=== PATIENT | male | born 1965 | race Caucasian/White ===

== ENCOUNTER 2017-12-25 23:32 | Inpatient (IN) | payer BC ==
[~2017-12-25] VITALS: Ht 177.8 cm; Wt 98.5 kg
[2017-12-25 23:39] VITALS: BP 133/86; PULSE 60; RESP 18; TEMP 98.2; O2SAT 92
[2017-12-25 23:45] VITALS: RESP 18
[2017-12-26] VITALS (12 sets, daily range): BP systolic 102–143; BP diastolic 53–91; PULSE 49–61; RESP 16–21; TEMP 97.6–98.4; O2SAT 95–100
[2017-12-26 00:13] LABS: AUTOMATED NEUTROPHIL # 5.4 TH/MM3 (1.8-7.7); BASOPHIL # 0.1 TH/MM3 (0-0.2); BASOPHIL % 0.5 % (0.0-2.0); EOSINOPHIL # 0.3 TH/MM3 (0-0.4); EOSINOPHIL % 2.9 % (0.0-4.0); HEMATOCRIT 43.5 % (39.0-51.0); LYMPH % 40.3 % (9.0-44.0); LYMPHOCYTE # 4.4 TH/MM3 (1.0-4.8); MEAN CELL VOLUME 90.9 FL (80.0-100.0); MEAN CORPUSCULAR HEMOGLOBIN 31.3 PG (27.0-34.0); MEAN CORPUSCULAR HGB CONC 34.5 % (32.0-36.0); MEAN PLATELET VOLUME 7.9 FL (7.0-11.0); MONO % 7.4 % (0.0-8.0); MONOCYTE # 0.8 TH/MM3 (0-0.9); NEUT % 48.9 % (16.0-70.0); PLATELET COUNT 215 TH/MM3 (150-450); RED BLOOD COUNT 4.79 MIL/MM3 (4.50-5.90); RED CELL DISTRIBUTION WIDTH 13.2 % (11.6-17.2)
[2017-12-26] MEDS ORDERED: LOSA100T PO (00:45)
[2017-12-26] MEDS ORDERED: PRAV80TA PO (00:45)
[2017-12-26] MEDS ORDERED: ASPI81CH6 CHEW (00:45)
[2017-12-26 00:46] LABS: BICARBONATE 27.2 MEQ/L (21.0-32.0); BLOOD UREA NITROGEN 16 MG/DL (7-18); CALCIUM 8.5 MG/DL (8.5-10.1); CHLORIDE 109 MEQ/L (98-107); CREATININE 1.05 MG/DL (0.60-1.30); GLOMERULAR FILTRATION RATE 75 ML/MIN (>89); GLUCOSE,RANDOM 98 MG/DL (74-106); SODIUM (NA) 142 MEQ/L (136-145); TROPONIN I 0.23 NG/ML (0.02-0.05)
--- NOTE | 2017-12-26 00:56 | RADRPT ---
EXAM DATE/TIME: 12/26/2017 00:41 [facility] COMPARISON: No previous studies available for comparison. INDICATIONS : Chest pain for 8 hours MEDICAL HISTORY : None. SURGICAL HISTORY : None. ENCOUNTER: Initial ACUITY: 1 day PAIN SCORE: 7/10 LOCATION: Bilateral chest FINDINGS: A single view of the chest demonstrates the lungs to be symmetrically aerated without evidence of mas s, infiltrate or effusion. The cardiomediastinal contours are unremarkable. Osseous structures are intact. CONCLUSION: Normal examination. Armando Ryan Jr., MD on December 26, 2017 at 0:54 Board Certified Radiologist. This report was verified electronically.
[2017-12-26] MEDS ORDERED: ONDANSETRON HCL 4 MG/2 ML VIAL IV PUSH PRN ×2 (01:15→11:45)
[2017-12-26] MEDS ORDERED: SODIUM CHLOR 0.9% 1000 ML INJ 1,000 ML IV SCH (01:15)
[2017-12-26] MEDS ORDERED: HEPARIN SODIUM - IV 10,000 UNITS/10 ML VIAL IV ONE (01:15)
[2017-12-26] MEDS ORDERED: MORPHINE SULFATE 4 MG/ML INJ IV PUSH PRN (01:15)
[2017-12-26] MEDS ORDERED: NITROGLYCERIN 0.4 MG SL 25 TABS/BTL SL PRN (01:15)
[2017-12-26] MEDS ORDERED: ACETAMINOPHEN 325 MG TAB PO PRN ×3 (01:15→11:45)
[2017-12-26] MEDS ORDERED: HEPARIN-D5W 25,000 U/250 ML 250 ML IV PRN (01:15)
[2017-12-26] MEDS ORDERED: SODIUM CHLORIDE 0.9% FLUSH 10 ML FLUSH IV FLUSH PRN ×3 (01:15→11:45)
--- NOTE | 2017-12-26 01:22 | PD ---
HPI Chief Complaint: Chest Pain Time Seen by Provider: 00:57 Travel History International Travel<30 days: No Contact w/Intl Traveler<30days: No Traveled to known affect area: No History of Present Illness HPI 52-year-old male complains of chest pain. Patient states that he had chest pain which lasted about an hour last night. Patient states that the chest pain resolved completely. Patient started having chest pain again this evening. Patient states that the chest pains started around 11:00 tonight. Patient states the pain is substernal chest pressure with radiation to both arms. Patient complains of tingling sensation bilateral hands. Patient complained of shortness of breath with chest pain. Patient denies palpitation diaphoresis with the chest pain. Patient states that the chest pain resolved when he arrived to the ED. Patient complains of aching pain between the shoulder blade now. Patient denies any coughing congestion fever chills. Patient denies history of NH. Patient has history hypertension, hyperlipidemia. Patient denies history diabetes. Patient smokes cigars. Patient has family history of heart disease. Patient took aspirin around the time today. Patient was given aspirin [address] to ED. Patient states that he had normal stress test about 5 years ago. PFSH Past Medical History Hypertension: Yes Immunizations Current: Yes Triglycerides - High: Yes Tetanus Vaccination: Unknown Influenza Vaccination: Yes Social History Alcohol Use: No Tobacco Use: Yes Substance Use: No Allergies-Medications (Allergen,Severity, Reaction): Coded Allergies: No Known Allergies (Unverified , 12/25/17) Reported Meds & Prescriptions Reported Meds & Active Scripts Active Reported Aspirin Low Dose (Aspirin) 81 Mg Chew 81 Mg CHEW DAILY Pravachol (Pravastatin) 80 Mg Tab 80 Mg PO DAILY Losartan (Losartan Potassium) 100 Mg Tab 100 Mg PO DAILY Review of Systems General / Constitutional: No: Fever Eyes: No: Visual changes HENT: No: Headaches Cardiovascular: Positive: Chest Pain or Discomfort Respiratory: Positive: Shortness of Breath Gastrointestinal: No: Abdominal Pain Genitourinary: No: Dysuria Musculoskeletal: No: Pain Skin: No Rash Neurologic: No: Weakness Psychiatric: No: Depression Endocrine: No: Polydipsia Hematologic/Lymphatic: No: Easy Bruising Physical Exam Narrative GENERAL: Well-nourished, well-developed patient. SKIN: Focused skin assessment warm/dry. HEAD: Normocephalic. EYES: No scleral icterus. No injection or drainage. NECK: Supple, trachea midline. No JVD or lymphadenopathy. CARDIOVASCULAR: Regular rate and rhythm without murmurs, gallops, or rubs. RESPIRATORY: Breath sounds equal bilaterally. No accessory muscle use. GASTROINTESTINAL: Abdomen soft, non-tender, nondistended. MUSCULOSKELETAL: No cyanosis, or edema. BACK: Nontender without obvious deformity. No CVA tenderness. Neurologic exam normal. Data Data Last Documented VS Vital Signs Date Time Temp Pulse Resp B/P (MAP) Pulse Ox O2 Delivery O2 Flow Rate FiO2 12/26/17 00:52 54 18 129/89 (102) 96 Room Air 12/25/17 23:45 2.00 12/25/17 23:39 98.2 Orders Orders Electrocardiogram (12/25/17 23:43) Complete Blood Count With Diff (12/25/17 23:43) Basic Metabolic Panel (Bmp) (12/25/17 23:43) Ckmb (Isoenzyme) Profile (12/25/17 23:43) Troponin I (12/25/17 23:43) Chest, Single Ap (12/25/17 23:43) Iv Access Insert/Monitor (12/25/17 23:43) Ecg Monitoring (12/25/17 23:43) Oxygen Administration (12/25/17 23:43) Oximetry (12/25/17 23:43) CKMB (12/25/17 23:50) CKMB% (12/25/17 23:50) Sodium Chlor 0.9% 1000 Ml Inj (Ns 1000 M (12/26/17 01:15) Ckmb (Isoenzyme) Profile (12/26/17 01:10) Ckmb (Isoenzyme) Profile (12/26/17 07:10) Ckmb (Isoenzyme) Profile (12/26/17 13:10) Troponin I (12/26/17 01:10) Troponin I (12/26/17 07:10) Troponin I (12/26/17 13:10) Electrocardiogram (12/26/17 01:10) Electrocardiogram (12/26/17 07:10) Electrocardiogram (12/26/17 13:10) Diet Npo Except Meds (12/26/17 Breakfast) Activity Bed Rest With Brp (12/26/17 01:10) Sodium Chloride 0.9% Flush (Ns Flush) (12/26/17 09:00) Sodium Chloride 0.9% Flush (Ns Flush) (12/26/17 01:15) Nitroglycerin Sl (Nitrostat Sl) (12/26/17 01:15) Morphine Inj (Morphine Inj) (12/26/17 01:15) Acetaminophen (Tylenol) (12/26/17 01:15) Ondansetron Inj (Zofran Inj) (12/26/17 01:15) Vital Signs (Adult) LILLIAM.Q4H (12/26/17 01:10) Consult Cardiology (12/26/17 ) Career Coordinator / Telemetry LILLIAM.Q8H (12/26/17 01:10) Heparin Inj (Heparin Inj) (12/26/17 01:15) Heparin-D5w 25,000 U/250 Ml (Heparin-D5w (12/26/17 01:15) Prothrombin Time / Inr (Pt) (12/26/17 01:15) Act Partial Throm Time (Ptt) (12/26/17 01:15) Labs Laboratory Tests Test 12/25/17 23:50 White Blood Count 11.0 TH/MM3 Red Blood Count 4.79 MIL/MM3 Hemoglobin 15.0 GM/DL Hematocrit 43.5 % Mean Corpuscular Volume 90.9 FL Mean Corpuscular Hemoglobin 31.3 PG Mean Corpuscular Hemoglobin Concent 34.5 % Red Cell Distribution Width 13.2 % Platelet Count 215 TH/MM3 Mean Platelet Volume 7.9 FL Neutrophils (%) (Auto) 48.9 % Lymphocytes (%) (Auto) 40.3 % Monocytes (%) (Auto) 7.4 % Eosinophils (%) (Auto) 2.9 % Basophils (%) (Auto) 0.5 % Neutrophils # (Auto) 5.4 TH/MM3 Lymphocytes # (Auto) 4.4 TH/MM3 Monocytes # (Auto) 0.8 TH/MM3 Eosinophils # (Auto) 0.3 TH/MM3 Basophils # (Auto) 0.1 TH/MM3 CBC Comment DIFF FINAL Differential Comment Blood Urea Nitrogen 16 MG/DL Creatinine 1.05 MG/DL Random Glucose 98 MG/DL Calcium Level 8.5 MG/DL Sodium Level 142 MEQ/L Potassium Level 3.8 MEQ/L Chloride Level 109 MEQ/L Carbon Dioxide Level 27.2 MEQ/L Anion Gap 6 MEQ/L Estimat Glomerular Filtration Rate 75 ML/MIN Total Creatine Kinase 161 U/L Creatine Kinase MB 4.5 NG/ML Troponin I 0.23 NG/ML MDM Medical Decision Making Medical Screen Exam Complete: Yes Emergency Medical Condition: Yes Interpretation(s) EKG shows sinus rhythm nonspecific ST-T wave change. Last Impressions Chest X-Ray 12/25/17 0643 Signed Impressions: Service Date/Time: Tuesday, December 26, 2017 00:41 - CONCLUSION: Normal examination. Armando Ryan Jr., MD 1:21 AM. CBC within normal limits. Troponin 0 0.23. CK-MB fraction 4.5. Differential Diagnosis Differential diagnoses including angina, NH, PE, pneumothorax. Narrative Course 52-year-old male with chest pain. Patient had chest pain last night and again this evening. Patient received aspirin prior to arrival. Nitro paste 1 inch on chest wall. Heparin bolus and drip. Diagnosis Primary Impression: NSTEMI (non-ST elevated myocardial infarction) Admitting Information Admitting Physician Requests: Admit Matt Knott MD Dec 26, 2017 01:22
[2017-12-26] MEDS ORDERED: MAGNESIUM HYDROXIDE SUSP 30 ML CUP PO PRN (02:00)
[2017-12-26] MEDS ORDERED: LACTULOSE SYRUP 20 GM/30 ML CUP PO PRN (02:00)
[2017-12-26] MEDS ORDERED: ACETAMINOPHEN/HYDROcodone 325 MG/5 MG TAB PO PRN (02:00)
[2017-12-26] MEDS ORDERED: BISACODYL 10 MG SUPP RECTAL PRN (02:00)
[2017-12-26] MEDS ORDERED: SENNOSIDES 8.6 MG TAB PO PRN (02:00)
[2017-12-26] MEDS ORDERED: MORPHINE SULFATE 2 MG/ML SYRINGE IV PUSH PRN (02:00)
[2017-12-26] MEDS ORDERED: ONDANSETRON HCL 4 MG/2 ML VIAL IVP PRN (02:00)
[2017-12-26] MEDS ORDERED: IOHEXOL 350 MG/ML 10 ML VIAL (for RAD DIAG) IVCONTRAST ONE (02:28)
--- NOTE | 2017-12-26 02:37 | RADRPT ---
EXAM DATE/TIME: 12/26/2017 02:24 [facility] COMPARISON: No previous studies available for comparison. INDICATIONS : Chest pain. IV CONTRAST: 75 cc Omnipaque 350 (iohexol) IV RADIATION DOSE: 23.64 CTDIvol (mGy) MEDICAL HISTORY : Hypertension. SURGICAL HISTORY : None. ENCOUNTER: Initial ACUITY: 1 day PAIN SCALE: 5/10 LOCATION: chest TECHNIQUE: Volumetric scanning of the chest was performed using a pulmonary embolism protocol MIP images were re constructed. Using automated exposure control and adjustment of the mA and/or kV according to patien t size, radiation dose was kept as low as reasonably achievable to obtain optimal diagnostic quality images. DICOM format image data is available electronically for review and comparison. Follow-up recommendations for detected pulmonary nodules are based at a minimum on nodule size and pa tient risk factors according to Fleischner Society Guidelines. FINDINGS: PULMONARY ARTERIES: No filling defects are seen in the pulmonary arteries through the segmental level. LUNGS: There is no consolidation or pneumothorax . No concerning pulmonary nodule is visualized. PLEURAE: There is no pleural thickening or pleural effusion. MEDIASTINUM: There is good visualization of the great vessels of the middle mediastinum. No evidence of mediastin al or hilar adenopathy/mass. MUSCULOSKELETAL: Within normal limits for patient age. MISCELLANEOUS: The visualized upper abdominal organs demonstrate no acute abnormality. CONCLUSION: Normal examination. Armando Ryan Jr., MD on December 26, 2017 at 2:34 Board Certified Radiologist. This report was verified electronically.
[2017-12-26 02:42] LABS: INTERNATIONAL NORMALIZED RATIO 0.9 RATIO; PROTHROMBIN TIME - PATIENT 9.5 SEC (9.8-11.6)
[2017-12-26] MEDS: SODIUM CHLOR 0.9% 1000 ML INJ 1,000 ML IV SCH ×8 (03:10→22:12)
--- NOTE | 2017-12-26 03:51 | HHI.HP ---
[facility] Service [facility] Primary Care Physician Unknown Admission Diagnosis NSTEMI Diagnoses: (1) NSTEMI (non-ST elevated myocardial infarction) Diagnosis: Principal (2) Hypoxia Diagnosis: Principal (3) HTN (hypertension) Diagnosis: Principal Travel History International Travel<30 Days: No Contact w/Intl Traveler <30 Da: No Traveled to Known Affected Are: No History of Present Illness This is a 52-year-old male with a PMH of HTN and Hyperlipidemia who was brought to the ER by EMS for complaints of chest pain. Had episode of substernal chest pain last night which resolved spontaneously. Today, pt w/ recurrent chest pain. Pain is pressure-like, substernal, intermittent radiation to shoulder blades, severe, 8/10. Given NTG by EMS w/ minimal improvement. Pt lives in [place], flew into town recently for business, notes c/o SOB after walking up stairs yesterday, not typical for him. Denies fever, chills or cough. On arrival, BP 133/86, HR 60, O2 sat 92% on RA, Afebrile. CBC unremarkable. Chemistry essentially unremarkable except for GFR 75. Troponin 0.23. INR 0.9. CXR with no acute findings. Currently on Heparin gtt. Review of Systems Except as stated in HPI: all other systems reviewed are Neg ROS: 14 point review of systems otherwise negative. Past Family Social History Past Medical History PMH: HTN and Hyperlipidemia Past Surgical History PAST SURGICAL HISTORY: None Allergies: Coded Allergies: No Known Allergies (Unverified , 12/25/17) Family History PAST FAMILY HISTORY: Reviewed, positive for CAD. Social History PAST SOCIAL HISTORY: Negative for alcohol or drugs. Smokes cigars. Physical Exam Vital Signs Vital Signs Date Time Temp Pulse Resp B/P (MAP) Pulse Ox O2 Delivery O2 Flow Rate FiO2 12/26/17 03:08 18 12/26/17 00:52 54 18 129/89 (102) 96 Room Air 12/25/17 23:45 97 Nasal Cannula 2.00 12/25/17 23:45 18 12/25/17 23:39 98.2 60 18 133/86 (102) 92 Physical Exam PE: GENERAL: Very pleasant middle-aged white male in no acute distress. HEENT: PERRLA, EOMI. No scleral icterus or conjunctival pallor. No lid lag or facial droop. CARDIOVASCULAR: Regular rate and rhythm. No obvious murmurs to auscultation. No chest tenderness to palpation. RESPIRATORY: No obvious rhonchi or wheezing. Clear to auscultation. Breath sounds equal bilaterally. GASTROINTESTINAL: Abdomen soft, non-tender, nondistended. BS normal. MUSCULOSKELETAL: Extremities without clubbing, cyanosis, or edema. No obvious deformities. NEUROLOGICAL: Awake, alert and oriented x4. No focal neurologic deficits. Moving both upper and lower extremities spontaneously. Laboratory Laboratory Tests Test 12/25/17 23:50 White Blood Count 11.0 Red Blood Count 4.79 Hemoglobin 15.0 Hematocrit 43.5 Mean Corpuscular Volume 90.9 Mean Corpuscular Hemoglobin 31.3 Mean Corpuscular Hemoglobin Concent 34.5 Red Cell Distribution Width 13.2 Platelet Count 215 Mean Platelet Volume 7.9 Neutrophils (%) (Auto) 48.9 Lymphocytes (%) (Auto) 40.3 Monocytes (%) (Auto) 7.4 Eosinophils (%) (Auto) 2.9 Basophils (%) (Auto) 0.5 Neutrophils # (Auto) 5.4 Lymphocytes # (Auto) 4.4 Monocytes # (Auto) 0.8 Eosinophils # (Auto) 0.3 Basophils # (Auto) 0.1 CBC Comment DIFF FINAL Differential Comment Prothrombin Time 9.5 Prothromb Time International Ratio 0.9 Activated Partial Thromboplast Time 23.7 Blood Urea Nitrogen 16 Creatinine 1.05 Random Glucose 98 Calcium Level 8.5 Sodium Level 142 Potassium Level 3.8 Chloride Level 109 Carbon Dioxide Level 27.2 Anion Gap 6 Estimat Glomerular Filtration Rate 75 Total Creatine Kinase 161 Creatine Kinase MB 4.5 Troponin I 0.23 Result Diagram: 12/25/17234912/25/172349 Caprini VTE Risk Assessment Caprini VTE Risk Assessment: Mod/High Risk (score >= 2) Caprini Risk Assessment Model Point Value = 1 Point Value = 2 Point Value = 3 Point Value = 5 Age 41-60 Minor surgery BMI > 25 kg/m2 Swollen legs Varicose veins or History of unexplained or recurrent spontaneous Oral contraceptives or hormone replacement Sepsis (< 1 month) Serious lung disease, including pneumonia (< 1 month) Abnormal pulmonary function Acute myocardial infarction Congestive heart failure (< 1 month) History of inflammatory bowel disease Medical patient at bed rest Age 61-74 Arthroscopic surgery Major open surgery (> 45 min) Laparoscopic surgery (> 45 min) Malignancy Confined to bed (> 72 hours) Immobilizing plaster cast Central venous access Age >= 75 History of VTE Family history of VTE Factor V Leiden Prothrombin [id number] Lupus anticoagulant Anticardiolipin antibodies Elevated serum homocysteine Heparin-induced thrombocytopenia Other congenital or acquired thrombophilia Stroke (< 1 month) Elective arthroplasty Hip, pelvis, or leg fracture Acute spinal cord injury (< 1 month) Prophylaxis Regimen Total Risk Factor Score Risk Level Prophylaxis Regimen 0-1 Low Early ambulation 2 Moderate Order ONE of the following: *Sequential Compression Device (SCD) *Heparin 5000 units SQ BID 3-4 Higher Order ONE of the following medications: *Heparin 5000 units SQ TID *Enoxaparin/Lovenox 40 mg SQ daily (WT < 150 kg, CrCl > 30 mL/min) *Enoxaparin/Lovenox 30 mg SQ daily (WT < 150 kg, CrCl > 10-29 mL/min) *Enoxaparin/Lovenox 30 mg SQ BID (WT < 150 kg, CrCl > 30 mL/min) AND/OR *Sequential Compression Device (SCD) 5 or more Highest Order ONE of the following medications: *Heparin 5000 units SQ TID (Preferred with Epidurals) *Enoxaparin/Lovenox 40 mg SQ daily (WT < 150 kg, CrCl > 30 mL/min) *Enoxaparin/Lovenox 30 mg SQ daily (WT < 150 kg, CrCl > 10-29 mL/min) *Enoxaparin/Lovenox 30 mg SQ BID (WT < 150 kg, CrCl > 30 mL/min) AND *Sequential Compression Device (SCD) Assessment and Plan Problem List: (1) NSTEMI (non-ST elevated myocardial infarction) ICD Code: I21.4 - Non-ST elevation (NSTEMI) myocardial infarction Status: Acute (2) Hypoxia ICD Code: R09.02 - Hypoxemia (3) HTN (hypertension) ICD Code: I10 - Essential (primary) hypertension Assessment and Plan A/P: 1. NSTEMI: acute onset of chest pain yesterday w/ recurrent symptoms today, Trop 0.23, EKG w/ no acute ischemia. Currently on Heparin gtt, admit to [facility], telemetry, check serial cardiac enzymes for trend, ASA, Statin, B-brian- caution w/ bradycardia. S/p NTG in ER w/ no improvement and hypotensive episode , will hold NTG. Morphine prn. Check Lipid Profile. Consult Cardiology for further evaluation. 2. Hypoxia: O2 sat 92% on RA, recent travel from [place], +SOB, +trop, will check CTA Pulm to eval for possible underlying PE. 3. HTN: Monitor BP, antihypertensives as needed. 4. DVT Prophylaxis: Heparin gtt 5. Social work for d/c planning as needed. 6. Case discussed w/ ER physician at length, labs/records/imaging reviewed by me. Physician Certification 2 Midnight Certification Type: Admission for Inpatient Services Order for Inpatient Services The services are ordered in accordance with Medicare regulations or non- Medicare payer requirements, as applicable. In the case of services not specified as inpatient-only, they are appropriately provided as inpatient services in accordance with the 2-midnight benchmark. Estimated LOS (days): 2 days is the estimated time the patient will need to remain in the hospital, assuming treatment plan goals are met and no additional complications. Post-Hospital Plan: Not yet determined Consuelo Espinal MD Dec 26, 2017 03:51
[2017-12-26 07:59] LABS: TROPONIN I 0.99 NG/ML (0.02-0.05)
[2017-12-26] MEDS ORDERED: PILL SPLITTER OTHER PRN (08:45)
[2017-12-26 08:53] LABS: CHOLESTEROL/ HDL RATIO 2.96 RATIO; HDL CHOLESTEROL 58.6 MG/DL (40.0-60.0)
[2017-12-26] MEDS: ASPIRIN 81 MG CHEW TAB CHEW SCH ×2 (09:00→09:37)
[2017-12-26] MEDS: DOCUSATE SODIUM 50 MG/SENNA 8.6 MG TAB PO SCH ×2 (09:00→21:46)
[2017-12-26] MEDS ORDERED: SODIUM CHLORIDE 0.9% FLUSH 10 ML FLUSH IV FLUSH SCH (09:00)
[2017-12-26] MEDS: SODIUM CHLORIDE 0.9% FLUSH 10 ML FLUSH IV FLUSH SCH ×3 (09:00→21:46)
[2017-12-26] MEDS: METOPROLOL TARTRATE 25 MG TAB PO SCH ×2 (09:00→21:00)
[2017-12-26] MEDS ORDERED: DIAZEPAM 5 MG TAB PO SCH (09:00)
[2017-12-26] MEDS: PRAVASTATIN SOD 80 MG TAB PO SCH ×2 (09:00→09:36)
[2017-12-26] MEDS: NITROGLYCERIN 2% OINT 1 GM PACKET TOPICAL SCH ×2 (09:06→13:21)
--- NOTE | 2017-12-26 09:14 | MB ---
cc: Gabino Mack MD DATE: 12/26/2017 REASON FOR CONSULTATION: Evaluation of chest pain. HISTORY OF PRESENT ILLNESS: Scott Carcamo is a 52-year-old man with multiple risk factors for coronary artery disease. He has hypertension for which he takes Losartan 100 mg. He has hyperlipidemia, for which he takes pravastatin 80 mg. He smokes cigars. His father had bypass surgery at age 39. The patient has had previous stress tests, but those were unremarkable. Two nights ago, he was lying in bed and had chest pain lasting about 5 minutes. Then last night around 11:00 p.m., about 5 minutes into being in bed, he developed severe heaviness in his chest with some tingling in his arms. Most of that has gone away, but he still has a slight twinge and he has a little discomfort in his back. He has been treated with nitroglycerin ointment. His blood pressure and heart rate have been on the low side and he has not been given the beta brian so far. 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 MEDICATIONS: 1. Aspirin. 2. Pravastatin. 3. Losartan. 4. He is on IV heparin. ALLERGIES: NONE. PAST SURGICAL HISTORY: Unremarkable. PAST MEDICAL HISTORY: Only remarkable for hypertension and hyperlipidemia. 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 He smokes cigars. Drinks alcohol socially. REVIEW OF SYSTEMS: He has had no GI bleeding, no urinary symptoms, no bleeding of any kind. Full review of systems was discussed and is unremarkable. PHYSICAL EXAMINATION: GENERAL: Reveals a mildly overweight, anxious, well-developed, well-nourished white male, in no acute distress. VITAL SIGNS: Charted. 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 NECK: Shows no JVD, no bruits. CHEST: Clear to auscultation. CARDIAC: Shows S1, S2. Bradycardic, regular rhythm. No S3 gallop. No murmur. ABDOMEN: Soft, nontender, no masses or organomegaly. EXTREMITIES: No clubbing, cyanosis or edema. His pulses are intact. DIAGNOSTIC STUDIES: His EKGs, he has had 2 of. The first EKG is from 11:35 p.m., it shows a sinus rhythm at 55 beats per minute. There are no acute ST-T wave changes. Second EKG at 5:55 again does not show acute ST-T wave changes. Heart rate is 47. He had a CTA that was negative for pulmonary embolism. He has had hematocrit of 43.5. Troponin has gone from 0.23, up to 0.99. CPK has gone from 161 to 257 with an MB of 25.3, which is elevated. Creatinine is ____. Chest x-ray is normal. IMPRESSION: A 52-year-old man with an acute non-ST segment elevation myocardial infarction. He has strong risk factors for coronary disease. RECOMMENDATIONS: Because of the rising troponin and continuation of mild symptoms, I think it is best if we proceed with cardiac catheterization this morning. Informed consent has been obtained for a cath, possible intervention. listened in the whole time on her cell phone. She is up in [place]. We will proceed this morning with cath and high probability that he may need some type of revascularization. Further therapy to be determined. MD TURNER Conway/GODFREY , 08:48 AM , 09:13 AM
[2017-12-26] MEDS ORDERED: diphenhydrAMINE HCL 25 MG CAP PO SCH (09:15)
[2017-12-26] MEDS ORDERED: NITROGLYCERIN INJ 5 ML ONE (09:53)
[2017-12-26] MEDS ORDERED: HEPARIN SODIUM - IV 10,000 UNITS/10 ML VIAL ONE (09:53)
[2017-12-26] MEDS ORDERED: HEPARIN-NS/PF FLUSH BAG 2,000 ML IV FLUSH ONE (09:53)
[2017-12-26] MEDS ORDERED: VERAPAMIL HCL 5 MG/2 ML VIAL ONE (09:53)
[2017-12-26] MEDS ORDERED: MIDAZOLAM HCL 2 MG/2 ML VIAL ONE (09:53)
[2017-12-26] MEDS ORDERED: TICAGRELOR 90 MG TAB PO ONE (11:11)
[2017-12-26] MEDS ORDERED: BIVALIRUDIN 250 MG VIAL ONE ×2 (11:19→11:36)
[2017-12-26] MEDS ORDERED: oxyCODONE/ACETAMINOPHEN 5 MG/325 MG TAB PO PRN (11:45)
[2017-12-26] MEDS ORDERED: MISC INFORMATION XX ONE (11:45)
--- NOTE | 2017-12-26 11:53 | MA ---
cc: Gabino Mack MD DATE: 12/26/2017 PROCEDURES PERFORMED: Left heart catheterization, left ventriculography, coronary angiography, stenting of the distal right coronary artery and posterolateral branch of the right coronary artery along with a stent of the proximal right coronary artery. DESCRIPTION OF PROCEDURE: The patient was brought to the cardiac catheterization lab under emergency conditions. Initially, I was going to go via the right radial approach, but he has extensive scarring in that arm, so I opted to go to the right femoral approach. Using 1% lidocaine for local anesthesia and using a single stick I accessed the right femoral artery and placed a 6-Cypriot sheath. Left ventricular pressure was then recorded using an angled pigtail catheter, followed by left ventriculography and then a pullback. Coronary angiography was then completed using a left 5 Sixto for the left coronary artery and a 3 DRC for the right coronary artery. The right coronary artery was the infarct related artery. It had a very tortuous loop in the mid vessel and I knew I had to go past that, so I started with a left 1 Amplatz guide. This was a little too large and damp so I switched to a left 0.75 Amplatz guide, which engaged the artery quite nicely and provided adequate backup. I then chose a Choice PT floppy wire, which with moderate difficulty, I was able to negotiate out into the far distal portion of the posterolateral branch of the right coronary artery. Predilation was performed with a 2.0 mm balloon. This restored flow and allowed me to see the lesion and then I stented it with a 3.0 x 18 mm Tony stent deployed at 14 atmospheres. The stent actually starts in the distal right coronary artery and extends out into the posterolateral branch. Angiography demonstrated a superb result. I then stented of the proximal right coronary artery utilizing a 3.5 x 22 mm Tony stent at 16 atmospheres. I had an excellent angiographic result. The wire and catheter was removed safely. After the guiding catheter was removed, angiography was obtained of the right femoral artery via the sheath, followed by uncomplicated Angio-Seal closure. The patient is now back on his way to his room. FINDINGS: 1. Hemodynamics: Left ventricular pressure was 116/4 with an end diastolic pressure of 23. Aortic pressure is 117/75 with a mean of 95. During pullback from the left ventricle to the aorta, there was no gradient measured. 2. Left ventriculography: Left ventriculography shows posterobasal akinesis, ejection fraction slightly impaired, estimated at 45%. 3. Coronary angiography: The left main coronary artery is a very large vessel with no stenosis seen. It trifurcates into the LAD, a very large ramus intermediate branch and a small circumflex vessel. The LAD has proximal irregularities and after the first septal has about a long zone of 25% irregular disease. Coming out of this is the diagonal branch, which is small and has about 25% disease. The ramus intermediate branch is large and has 5% irregularities proximally. Circumflex artery gives off only a tiny obtuse marginal branch and it appears normal. The right coronary artery is a dominant vessel. It has a long proximal stenosis, about 80% severity. Just past a very small PDA branch, the distal right coronary artery and posterolateral branch of the right coronary artery are totally occluded. 4. Results of stenting: Following stenting, the distal vessel has was gone from INEZ 0 flow to INEZ 3 flow. There is no residual stenosis seen distally or proximally where the stents were placed. There is no dissection. CONCLUSIONS: 1. Mildly elevated left ventricular end diastolic pressure. 2. Mildly impaired left ventricular function from an inferior infarct. 3. Critical disease of the right coronary artery with a very complex vessel due to the tortuosity, but extremely successful results with stenting of the distal and posterolateral branch of the right coronary artery as well as stenting of the proximal right coronary artery. 4. Mild disease of the mid left anterior descending that can be managed medically. RECOMMENDATIONS: The patient is going to be treated with aspirin and Brilinta. I am going to upgrade his statin therapy to 80 of atorvastatin. He is too bradycardic at this point add a beta brian. MD TURNER Conway/GODFREY , 11:31 AM , 11:52 AM
[2017-12-26] MEDS ORDERED: BIVALIRUDIN INJ 250 MG in SODIUM CHLORIDE 0.9% INJ 50 ML IV SCH (13:00)
[2017-12-26] MEDS: ATORVASTATIN 80 MG TAB PO SCH (13:21)
--- NOTE | 2017-12-26 16:43 | EKG ---
Date Performed: 12/25/2017 Time Performed: 23:35:43 PTAGE: 52 years EKG: SINUS BRADYCARDIA BORDERLINE ECG INTERPRETATION BASED ON A DEFAULT AGE OF 42 YEARS NO PREVIOUS TRACING DOCTOR: Gabino Mack Interpretating Date/Time 12/26/2017 16:45:35
--- NOTE | 2017-12-26 16:55 | EKG ---
Date Performed: 12/26/2017 Time Performed: 05:55:54 PTAGE: 52 years EKG: SINUS BRADYCARDIA BORDERLINE ECG Since the PREVIOUS TRACING , no significant change noted PREVIOUS TRACIN12/25/2017 23.35 DOCTOR: Gabino Mack Interpretating Date/Time 12/26/2017 16:50:20
[2017-12-26] MEDS ORDERED: METOPROLOL TARTRATE 25 MG TAB PO SCH (21:00)
[2017-12-27] VITALS (8 sets, daily range): BP systolic 104–131; BP diastolic 69–95; PULSE 51–75; RESP 16–20; TEMP 98.2–98.7; O2SAT 95–98
[2017-12-27 04:35] LABS: AUTOMATED NEUTROPHIL # 5.6 TH/MM3 (1.8-7.7); BASOPHIL % 0.4 % (0.0-2.0); EOSINOPHIL # 0.2 TH/MM3 (0-0.4); EOSINOPHIL % 1.7 % (0.0-4.0); HEMATOCRIT 42.8 % (39.0-51.0); HEMOGLOBIN 14.4 GM/DL (13.0-17.0); LYMPH % 31.3 % (9.0-44.0); LYMPHOCYTE # 2.9 TH/MM3 (1.0-4.8); MEAN CELL VOLUME 91.8 FL (80.0-100.0); MEAN CORPUSCULAR HEMOGLOBIN 30.8 PG (27.0-34.0); MEAN CORPUSCULAR HGB CONC 33.5 % (32.0-36.0); MEAN PLATELET VOLUME 8.2 FL (7.0-11.0); MONO % 7.7 % (0.0-8.0); MONOCYTE # 0.7 TH/MM3 (0-0.9); NEUT % 58.9 % (16.0-70.0); PLATELET COUNT 174 TH/MM3 (150-450); RED BLOOD COUNT 4.67 MIL/MM3 (4.50-5.90); RED CELL DISTRIBUTION WIDTH 13.5 % (11.6-17.2); WHITE BLOOD COUNT 9.4 TH/MM3 (4.0-11.0)
[2017-12-27] MEDS: SODIUM CHLOR 0.9% 1000 ML INJ 1,000 ML IV SCH ×5 (04:52→16:59)
[2017-12-27 05:17] LABS: ALT (GPT) 33 U/L (12-78); AST (GOT) 100 U/L (15-37); BICARBONATE 24.3 MEQ/L (21.0-32.0); BLOOD UREA NITROGEN 10 MG/DL (7-18); CALCIUM 8.3 MG/DL (8.5-10.1); CHLORIDE 111 MEQ/L (98-107); CREATININE 0.79 MG/DL (0.60-1.30); GLOMERULAR FILTRATION RATE 104 ML/MIN (>89); GLUCOSE,RANDOM 90 MG/DL (74-106); SODIUM (NA) 144 MEQ/L (136-145)
[2017-12-27 05:23] LABS: ALKALINE PHOSPHATASE 35 U/L (45-117); TOTAL BILIRUBIN ADULT 0.4 MG/DL (0.2-1.0); TOTAL PROTEIN 5.8 GM/DL (6.4-8.2)
[2017-12-27] MEDS: TICAGRELOR 90 MG TAB PO SCH ×2 (08:50→20:57)
[2017-12-27] MEDS: DOCUSATE SODIUM 50 MG/SENNA 8.6 MG TAB PO SCH ×2 (08:50→21:00)
[2017-12-27] MEDS: ASPIRIN 81 MG CHEW TAB CHEW SCH (08:50)
[2017-12-27] MEDS: SODIUM CHLORIDE 0.9% FLUSH 10 ML FLUSH IV FLUSH SCH ×4 (08:50→21:00)
[2017-12-27] MEDS: METOPROLOL TARTRATE 25 MG TAB PO SCH ×2 (08:51→20:57)
[2017-12-27] MEDS ORDERED: ASPIRIN 81 MG CHEW TAB PO SCH (09:00)
--- NOTE | 2017-12-27 10:39 | HHI.PR ---
Subjective Remarks In bed family at bedside. He was able to ambulate today no chest pain or shortness of breath. Heart rate control lower side however was started on a low-dose of metoprolol to cardiac cath. Did not have a bowel movement yet. No nausea vomiting no diarrhea. No fever or chills. Is not coughing. Objective Vitals Vital Signs Date Time Temp Pulse Resp B/P (MAP) Pulse Ox O2 Delivery O2 Flow Rate FiO2 12/27/17 08:06 98.2 58 18 128/95 (106) 96 12/27/17 07:14 57 12/27/17 04:00 98.2 58 18 104/69 (81) 96 12/27/17 00:00 98.2 51 16 116/71 (86) 95 12/26/17 23:00 57 12/26/17 20:00 98.4 58 16 136/78 (97) 96 12/26/17 20:00 61 12/26/17 16:00 98.0 58 16 128/82 (97) 95 12/26/17 16:00 58 12/26/17 12:00 51 12/26/17 12:00 97.6 53 16 121/83 (96) 95 I/O 12/26/17 12/26/17 12/26/17 12/27/17 12/27/17 12/27/17 07:00 15:00 23:00 07:00 15:00 23:00 Intake Total 200 ml 400 ml 720 ml Output Total 1210 ml 2400 ml Balance 200 ml -810 ml -1680 ml Intake Oral 400 ml 720 ml IV Total 200 ml Output Urine Total 1210 ml 2400 ml # Bowel Movements 0 0 Result Diagram: 12/27/17 0355 12/27/17 [address] Angiography 12/26/17 0000 Signed Impressions: Service Date/Time: Tuesday, December 26, 2017 02:24 - CONCLUSION: Normal examination. Armando Ryan Jr., MD Chest X-Ray 12/25/17 2360 Signed Impressions: Service Date/Time: Tuesday, December 26, 2017 00:41 - CONCLUSION: Normal examination. Armando Ryan Jr., MD Objective Remarks GENERAL: Very pleasant middle-aged white male in no acute distress. CARDIOVASCULAR: Regular rate and rhythm. No obvious murmurs to auscultation. No chest tenderness to palpation. RESPIRATORY: No obvious rhonchi or wheezing. Clear to auscultation. Breath sounds equal bilaterally. GASTROINTESTINAL: Abdomen soft, non-tender, nondistended. BS normal. MUSCULOSKELETAL: Extremities without clubbing, cyanosis, or edema. No obvious deformities. NEUROLOGICAL: Awake, alert and oriented x4. No focal neurologic deficits. Moving both upper and lower extremities spontaneously. A/P Problem List: (1) NSTEMI (non-ST elevated myocardial infarction) ICD Code: I21.4 - Non-ST elevation (NSTEMI) myocardial infarction Status: Acute (2) Hypoxia ICD Code: R09.02 - Hypoxemia (3) HTN (hypertension) ICD Code: I10 - Essential (primary) hypertension Assessment and Plan NSTEMI: acute onset of chest pain yesterday w/ recurrent symptoms today, Trop 0.23, EKG w/ no acute ischemia. Currently on Heparin gtt, admit to [facility], telemetry, check serial cardiac enzymes for trend, ASA, Statin, B-brian- caution w/ bradycardia. S/p NTG in ER w/ no improvement and hypotensive episode , will hold NTG. Morphine prn. Lipid Profile. Consult Cardiology ff s/p cardiac cath by Dr Mack on 12/26/17: Mildly elevated left ventricular end diastolic pressure. Mildly impaired left ventricular function from an inferior infarct. Critical disease of the right coronary artery with stenting of the distal and posterolateral branch of the right coronary artery as well as stenting of the proximal right coronary artery. Mild disease of the mid left anterior descending that can be managed medically. Continue aspirin and Brilinta. Increase statin therapy to 80 of atorvastatin. He is too bradycardic at this point to add a beta brian. Will follow up with cardiology Hypoxia on admission: O2 sat 92% on RA, recent travel from [place], +SOB, + trop, will check CTA Pulm to eval for possible underlying PE. HTN: Monitor BP, antihypertensives as needed. DVT Prophylaxis: Heparin gtt CM consulted for DC planning as needed. Discussed with the patient, nurse Discussed with Dr. Mack cardiology, discharge tomorrow per cardiology Maddy Eduardo MD Dec 27, 2017 10:39
[2017-12-27] MEDS ORDERED: NITR1SUB3 SL (10:43)
[2017-12-27] MEDS ORDERED: BRIL90TA PO (10:43)
[2017-12-27] MEDS ORDERED: ATOR80TA45 PO (10:43)
--- NOTE | 2017-12-27 10:43 | HHI.DCPOC ---
Discharge Care Plan Goals to Promote Your Health * To prevent worsening of your condition and complications * To maintain your health at the optimal level Directions to Meet Your Goals Take your medications as prescribed Follow your dietary instruction Follow activity as directed Keep your appointments as scheduled Take your immunizations and boosters as scheduled If your symptoms worsen call your PCP, if no PCP go to Urgent Care Center or Emergency Room Smoking is Dangerous to Your Health. Avoid second hand smoke Call the 24-hour hour crisis hotline for domestic abuse at Maddy Eduardo MD Dec 27, 2017 10:43
--- NOTE | 2017-12-27 10:43 | HHI.DS ---
Discharge Summary Admission Date Dec 26, 2017 at 01:49 Discharge Date: Dec 27, 2017 Admitting Diagnosis NSTEMI (1) NSTEMI (non-ST elevated myocardial infarction) ICD Code: I21.4 - Non-ST elevation (NSTEMI) myocardial infarction Status: Acute (2) Hypoxia ICD Code: R09.02 - Hypoxemia (3) HTN (hypertension) ICD Code: I10 - Essential (primary) hypertension Brief History - From Admission This is a 52-year-old male with a PMH of HTN and Hyperlipidemia who was brought to the ER by EMS for complaints of chest pain. Had episode of substernal chest pain last night which resolved spontaneously. Today, pt w/ recurrent chest pain. Pain is pressure-like, substernal, intermittent radiation to shoulder blades, severe, 8/10. Given NTG by EMS w/ minimal improvement. Pt lives in [place], flew into town recently for business, notes c/o SOB after walking up stairs yesterday, not typical for him. Denies fever, chills or cough. On arrival, BP 133/86, HR 60, O2 sat 92% on RA, Afebrile. CBC unremarkable. Chemistry essentially unremarkable except for GFR 75. Troponin 0.23. INR 0.9. CXR with no acute findings. Currently on Heparin gtt. CBC/BMP: 12/27/17 0355 12/27/17 0335 Significant Findings Laboratory Tests Test 12/25/17 23:50 12/26/17 06:00 12/26/17 09:00 12/27/17 03:35 Prothrombin Time 9.5 SEC (9.8-11.6) Activated Partial Thromboplast Time 23.7 SEC (24.3-30.1) 34.1 SEC (24.3-30.1) Chloride Level 109 MEQ/L (98-107) 111 MEQ/L (98-107) Estimat Glomerular Filtration Rate 75 ML/MIN (>89) Creatine Kinase MB 4.5 NG/ML (0.5-3.6) 25.3 NG/ML (0.5-3.6) 73.7 NG/ML (0.5-3.6) Troponin I 0.23 NG/ML (0.02-0.05) 0.99 NG/ML (0.02-0.05) LDL Cholesterol 105 MG/DL (0-99) Total Protein 5.8 GM/DL (6.4-8.2) Albumin 3.0 GM/DL (3.4-5.0) Calcium Level 8.3 MG/DL (8.5-10.1) Alkaline Phosphatase 35 U/L (45-117) Aspartate Amino Transf (AST/SGOT) 100 U/L (15-37) Total Creatine Kinase 611 U/L (39-308) Creatine Kinase MB % 12.1 % (0.0-4.0) Test 12/27/17 03:55 PE at Discharge GENERAL: Very pleasant middle-aged white male in no acute distress. CARDIOVASCULAR: Regular rate and rhythm. No obvious murmurs to auscultation. No chest tenderness to palpation. RESPIRATORY: No obvious rhonchi or wheezing. Clear to auscultation. Breath sounds equal bilaterally. GASTROINTESTINAL: Abdomen soft, non-tender, nondistended. BS normal. MUSCULOSKELETAL: Extremities without clubbing, cyanosis, or edema. No obvious deformities. NEUROLOGICAL: Awake, alert and oriented x4. No focal neurologic deficits. Moving both upper and lower extremities spontaneously. Pt Condition on Discharge: Stable Maddy Eduardo MD Dec 27, 2017 10:43
[2017-12-27] MEDS: ATORVASTATIN 80 MG TAB PO SCH (10:45)
--- NOTE | 2017-12-27 11:22 | PD.CARD.PN ---
Subjective Subjective Remarks no angina. no complaints. Objective Medications Current Medications Medications (Trade) Dose Ordered Sig/Linette Route Start Time Stop Time Status Last Admin Heparin Sodium/ Dextrose 250 ml @ 9 mls/hr TITRATE PRN IV 12/26/17 01:15 12/26/17 02:49 Sodium Chloride 1,000 ml @ 100 mls/hr Q10H IV 12/26/17 02:00 12/26/17 13:21 (NS Flush) 2 ml UNSCH PRN IV FLUSH 12/26/17 02:00 (NS Flush) 2 ml BID IV FLUSH 12/26/17 09:00 12/27/17 08:50 (Zofran Inj) 4 mg Q6H PRN IVP 12/26/17 02:00 12/26/17 02:43 (Tylenol) 650 mg Q6H PRN PO 12/26/17 02:00 ([place] 5-325 Mg) 1 tab Q4H PRN PO 12/26/17 02:00 12/26/17 05:38 (Morphine Inj) 2 mg Q3H PRN IV PUSH 12/26/17 02:00 12/26/17 02:43 (Josie-Colace) 1 tab BID PO 12/26/17 09:00 12/27/17 08:50 (Milk Of Magnesia Liq) 30 ml Q12H PRN PO 12/26/17 02:00 (Senokot) 17.2 mg Q12H PRN PO 12/26/17 02:00 (Dulcolax Supp) 10 mg DAILY PRN RECTAL 12/26/17 02:00 (Lactulose Liq) 30 ml DAILY PRN PO 12/26/17 02:00 (Aspirin Chew) 81 mg DAILY CHEW 12/26/17 09:00 12/27/17 08:50 (Lopressor) 12.5 mg Q12HR PO 12/26/17 09:00 12/27/17 08:51 (Pill Splitter) 1 ea UNSCH PRN OTHER 12/26/17 08:45 Sodium Chloride 1,000 ml @ 150 mls/hr Q6H40M IV 12/26/17 08:52 12/31/17 08:51 12/26/17 09:50 (Benadryl) 25 mg FOREPART LASTER PO 12/26/17 09:15 12/30/17 09:14 (Valium) 5 mg FOREPART LASTER PO 12/26/17 09:00 12/30/17 08:59 (NS Flush) 2 ml UNSCH PRN IV FLUSH 12/26/17 11:45 (NS Flush) 2 ml BID IV FLUSH 12/26/17 21:00 12/26/17 21:00 (Tylenol) 325 mg Q4H PRN PO 12/26/17 11:45 (Percocet 5-325 Mg) 1 tab Q4H PRN PO 12/26/17 11:45 (Aspirin Chew) 81 mg DAILY PO 12/27/17 09:00 (Brilinta) 90 mg BID PO 12/27/17 09:00 12/27/17 08:50 (Zofran Inj) 4 mg Q4H PRN IV PUSH 12/26/17 11:45 (Lipitor) 80 mg DAILY PO 12/26/17 11:45 12/27/17 10:45 Vital Signs / I&O Vital Signs Date Time Temp Pulse Resp B/P (MAP) Pulse Ox O2 Delivery O2 Flow Rate FiO2 12/27/17 08:06 98.2 58 18 128/95 (106) 96 12/27/17 07:14 57 12/27/17 04:00 98.2 58 18 104/69 (81) 96 12/27/17 00:00 98.2 51 16 116/71 (86) 95 12/26/17 23:00 57 12/26/17 20:00 98.4 58 16 136/78 (97) 96 12/26/17 20:00 61 12/26/17 16:00 98.0 58 16 128/82 (97) 95 12/26/17 16:00 58 12/26/17 12:00 51 12/26/17 12:00 97.6 53 16 121/83 (96) 95 I/O 12/26/17 12/26/17 12/26/17 12/27/17 12/27/17 12/27/17 07:00 15:00 23:00 07:00 15:00 23:00 Intake Total 200 ml 400 ml 720 ml Output Total 1210 ml 2400 ml Balance 200 ml -810 ml -1680 ml Intake Oral 400 ml 720 ml IV Total 200 ml Output Urine Total 1210 ml 2400 ml # Bowel Movements 0 0 Physical Exam GENERAL: Well developed, well nourished. No acute distress. HEENT: Jugular venous pressure is normal. CHEST: Lungs clear to auscultation bilaterally. Unlabored respiratory effort. CARDIAC: Regular rate and rhythm without S3, S4, or murmur. ABDOMEN: Soft, nontender, no hepatosplenomegaly. Bowel sounds present. EXTREMITIES: No clubbing, cyanosis, or edema. Pulses symmetrical/ equal. Right groin no hematoma. Laboratory Laboratory Tests Test 12/27/17 03:35 12/27/17 03:55 Blood Urea Nitrogen 10 MG/DL Creatinine 0.79 MG/DL Random Glucose 90 MG/DL Total Protein 5.8 GM/DL Albumin 3.0 GM/DL Calcium Level 8.3 MG/DL Alkaline Phosphatase 35 U/L Aspartate Amino Transf (AST/SGOT) 100 U/L Alanine Aminotransferase (ALT/SGPT) 33 U/L Total Bilirubin 0.4 MG/DL Sodium Level 144 MEQ/L Potassium Level 3.8 MEQ/L Chloride Level 111 MEQ/L Carbon Dioxide Level 24.3 MEQ/L Anion Gap 9 MEQ/L Estimat Glomerular Filtration Rate 104 ML/MIN Total Creatine Kinase 611 U/L Creatine Kinase MB 73.7 NG/ML Creatine Kinase MB % 12.1 % White Blood Count 9.4 TH/MM3 Red Blood Count 4.67 MIL/MM3 Hemoglobin 14.4 GM/DL Hematocrit 42.8 % Mean Corpuscular Volume 91.8 FL Mean Corpuscular Hemoglobin 30.8 PG Mean Corpuscular Hemoglobin Concent 33.5 % Red Cell Distribution Width 13.5 % Platelet Count 174 TH/MM3 Mean Platelet Volume 8.2 FL Neutrophils (%) (Auto) 58.9 % Lymphocytes (%) (Auto) 31.3 % Monocytes (%) (Auto) 7.7 % Eosinophils (%) (Auto) 1.7 % Basophils (%) (Auto) 0.4 % Neutrophils # (Auto) 5.6 TH/MM3 Lymphocytes # (Auto) 2.9 TH/MM3 Monocytes # (Auto) 0.7 TH/MM3 Eosinophils # (Auto) 0.2 TH/MM3 Basophils # (Auto) 0.0 TH/MM3 CBC Comment DIFF FINAL Differential Comment Assessment and Plan Problem List: (1) Hyperlipidemia ICD Codes: E78.5 - Hyperlipidemia, unspecified Plan: atorva 80mg (2) HTN (hypertension) ICD Codes: I10 - Essential (primary) hypertension (3) NSTEMI (non-ST elevated myocardial infarction) ICD Codes: I21.4 - Non-ST elevation (NSTEMI) myocardial infarction Status: Acute (4) Stented coronary artery ICD Codes: Z95.5 - Presence of coronary angioplasty implant and graft Plan: cont ASA and Brilinta Assessment and Plan Ambulate today, Home tomorrow AM. Gabino Mack MD Dec 27, 2017 11:22
[2017-12-27] MEDS ORDERED: METO25TA3 PO (13:29)
[2017-12-28] VITALS: PULSE 54; PULSE 55; RESP 16; O2SAT 98
--- NOTE | 2017-12-28 00:13 | EKG ---
Date Performed: 12/27/2017 Time Performed: 07:07:24 PTAGE: 52 years EKG: Sinus bradycardia Inferior infarct - age undetermined Abnormal ECG PREVIOUS TRACING : 12/26/2017 14.48 Since the previous tracing, no significant change noted DOCTOR: Deonte Nugent Interpretating Date/Time 12/28/2017 00:11:50
--- NOTE | 2017-12-28 00:39 | EKG ---
Date Performed: 12/26/2017 Time Performed: 14:48:32 PTAGE: 52 years EKG: Sinus bradycardia Inferior infarct - age undetermined Abnormal ECG PREVIOUS TRACING : 12/26/2017 05.55 Since the previous tracing, no significant change noted DOCTOR: Deonte Nugent Interpretating Date/Time 12/28/2017 00:38:03
[2017-12-28 04:00] VITALS: BP 120/82; PULSE 54; RESP 16; TEMP 98.6; O2SAT 97
[2017-12-28] MEDS ORDERED: IOHEXOL 350 MG/ML 100 ML BTL (for Cath Lab) OTHER ONE (06:52)
--- NOTE | 2017-12-28 07:22 | PD.CARD.PN ---
Subjective Subjective Remarks no angina. no complaints. Objective Medications Current Medications Medications (Trade) Dose Ordered Sig/Linette Route Start Time Stop Time Status Last Admin Heparin Sodium/ Dextrose 250 ml @ 9 mls/hr TITRATE PRN IV 12/26/17 01:15 12/26/17 02:49 Sodium Chloride 1,000 ml @ 100 mls/hr Q10H IV 12/26/17 02:00 12/26/17 13:21 (NS Flush) 2 ml UNSCH PRN IV FLUSH 12/26/17 02:00 (NS Flush) 2 ml BID IV FLUSH 12/26/17 09:00 12/27/17 21:00 (Zofran Inj) 4 mg Q6H PRN IVP 12/26/17 02:00 12/26/17 02:43 (Tylenol) 650 mg Q6H PRN PO 12/26/17 02:00 ([place] 5-325 Mg) 1 tab Q4H PRN PO 12/26/17 02:00 12/26/17 05:38 (Morphine Inj) 2 mg Q3H PRN IV PUSH 12/26/17 02:00 12/26/17 02:43 (Josie-Colace) 1 tab BID PO 12/26/17 09:00 12/27/17 08:50 (Milk Of Magnesia Liq) 30 ml Q12H PRN PO 12/26/17 02:00 (Senokot) 17.2 mg Q12H PRN PO 12/26/17 02:00 (Dulcolax Supp) 10 mg DAILY PRN RECTAL 12/26/17 02:00 (Lactulose Liq) 30 ml DAILY PRN PO 12/26/17 02:00 (Aspirin Chew) 81 mg DAILY CHEW 12/26/17 09:00 12/27/17 08:50 (Lopressor) 12.5 mg Q12HR PO 12/26/17 09:00 12/27/17 20:57 (Pill Splitter) 1 ea UNSCH PRN OTHER 12/26/17 08:45 Sodium Chloride 1,000 ml @ 150 mls/hr Q6H40M IV 12/26/17 08:52 12/31/17 08:51 12/26/17 09:50 (Benadryl) 25 mg [employer] WORKER PO 12/26/17 09:15 12/30/17 09:14 (Valium) 5 mg ME[employer] WORKER PO 12/26/17 09:00 12/30/17 08:59 (NS Flush) 2 ml UNSCH PRN IV FLUSH 12/26/17 11:45 (NS Flush) 2 ml BID IV FLUSH 12/26/17 21:00 12/26/17 21:00 (Tylenol) 325 mg Q4H PRN PO 12/26/17 11:45 (Percocet 5-325 Mg) 1 tab Q4H PRN PO 12/26/17 11:45 (Aspirin Chew) 81 mg DAILY PO 12/27/17 09:00 (Brilinta) 90 mg BID PO 12/27/17 09:00 12/27/17 20:57 (Zofran Inj) 4 mg Q4H PRN IV PUSH 12/26/17 11:45 (Lipitor) 80 mg DAILY PO 12/26/17 11:45 12/27/17 10:45 Vital Signs / I&O Vital Signs Date Time Temp Pulse Resp B/P (MAP) Pulse Ox O2 Delivery O2 Flow Rate FiO2 12/28/17 04:00 97 Room Air 12/28/17 04:00 98.6 54 16 120/82 (95) 97 12/28/17 04:00 54 12/28/17 00:00 98 Room Air 12/28/17 00:00 54 12/28/17 00:00 55 16 98 12/27/17 20:00 98 Room Air 12/27/17 20:00 58 12/27/17 20:00 98.7 59 20 131/84 (100) 98 12/27/17 15:54 98.5 61 18 131/89 (103) 97 12/27/17 15:31 58 12/27/17 12:07 98.2 75 18 125/88 (100) 96 12/27/17 08:06 98.2 58 18 128/95 (106) 96 I/O 12/27/17 12/27/17 12/27/17 12/28/17 12/28/17 12/28/17 07:00 15:00 23:00 07:00 15:00 23:00 Intake Total 720 ml 1400 ml 480 ml Output Total 2400 ml 2100 ml 1750 ml Balance -1680 ml -700 ml -1270 ml Intake Oral 720 ml 1400 ml 480 ml Output Urine Total 2400 ml 2100 ml 1750 ml # Voids 5 # Bowel Movements 0 2 0 Physical Exam GENERAL: Well developed, well nourished. No acute distress. HEENT: Jugular venous pressure is normal. CHEST: Lungs clear to auscultation bilaterally. Unlabored respiratory effort. CARDIAC: Regular rate and rhythm without S3, S4, or murmur. Tele SR to SB ABDOMEN: Soft, nontender, no hepatosplenomegaly. Bowel sounds present. EXTREMITIES: No clubbing, cyanosis, or edema. Pulses symmetrical/ equal. Right groin no hematoma. Assessment and Plan Problem List: (1) Hyperlipidemia ICD Codes: E78.5 - Hyperlipidemia, unspecified Plan: atorva 80 (2) HTN (hypertension) ICD Codes: I10 - Essential (primary) hypertension Plan: stable (3) NSTEMI (non-ST elevated myocardial infarction) ICD Codes: I21.4 - Non-ST elevation (NSTEMI) myocardial infarction Status: Acute (4) Stented coronary artery ICD Codes: Z95.5 - Presence of coronary angioplasty implant and graft Plan: cont ASA 81mg + Brilinta 90mg bid Assessment and Plan Stable for discharge, He will F/u in [place]. Extensively educated on heart healthy diet. Wait 2 weeks to return to work, cardiac rehab in [place]. Gabino Mack MD Dec 28, 2017 07:22
--- NOTE | 2017-12-28 07:52 | HHI.PR ---
Subjective Remarks Pt discharged prior to attending seeing him this morning. Cardiology had cleared him first thing this morning and discharge medications and packet had already been printed yesterday. Spoke with patient on the phone who was already en route back to his hotel who states that he was feeling excellent. He denied any bleeding or hematoma from his catheterization site. He denied CP or SOB. 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 Objective Vital Signs Date Time Temp Pulse Resp B/P (MAP) Pulse Ox O2 Delivery O2 Flow Rate FiO2 12/28/17 04:00 97 Room Air 12/28/17 04:00 98.6 54 16 120/82 (95) 97 12/28/17 04:00 54 12/28/17 00:00 98 Room Air 12/28/17 00:00 54 12/28/17 00:00 55 16 98 12/27/17 20:00 98 Room Air 12/27/17 20:00 58 12/27/17 20:00 98.7 59 20 131/84 (100) 98 12/27/17 15:54 98.5 61 18 131/89 (103) 97 12/27/17 15:31 58 12/27/17 12:07 98.2 75 18 125/88 (100) 96 12/27/17 08:06 98.2 58 18 128/95 (106) 96 I/O 12/27/17 12/27/17 12/27/17 12/28/17 12/28/17 12/28/17 07:00 15:00 23:00 07:00 15:00 23:00 Intake Total 720 ml 1400 ml 480 ml Output Total 2400 ml 2100 ml 1750 ml Balance -1680 ml -700 ml -1270 ml Intake Oral 720 ml 1400 ml 480 ml Output Urine Total 2400 ml 2100 ml 1750 ml # Voids 5 # Bowel Movements 0 2 0 Result Diagram: 12/27/17 0355 12/27/17 0335 Objective Remarks Exam not performed as patient had been discharged from the floor A/P Assessment and Plan 52 YOWM with HTN and HLD admitted on 12/26 with chest pain found to have NSTEMI with mildly elevated troponins. 1. NSTEMI - Troponons 0.23 and 0.99 - EKG sinus john - Placed on heparin gtt on admission - Cardiology consulted and pt underwent cath on 12/26 showing: Mildly elevated left ventricular end diastolic pressure Mildly impaired left ventricular function from an inferior infarct Critical disease of the right coronary artery with stenting of the distal and posterolateral branch of the right coronary artery as well as stenting of the proximal right coronary artery Mild disease of the mid left anterior descending that can be managed medically - Cleared by cardiology this AM - On ASA and Brilinta, scripts provided - Continue statin and BB (statin dose increased) 2. HTN - On MM 3. HLD - On statin Discharge Planning Discharged this morning prior to attending seeing him Isidra Buchanan MD Dec 28, 2017 07:51
[2017-12-28 08:10] VITALS: BP 120/88; PULSE 63; RESP 16; TEMP 98.3; O2SAT 98
--- NOTE | 2017-12-28 09:08 | HHI.DS ---
Discharge Summary Admission Date Dec 26, 2017 at 01:49 Discharge Date: Dec 28, 2017 Admitting Diagnosis NSTEMI (1) NSTEMI (non-ST elevated myocardial infarction) ICD Code: I21.4 - Non-ST elevation (NSTEMI) myocardial infarction Status: Acute (2) Hypoxia ICD Code: R09.02 - Hypoxemia (3) HTN (hypertension) ICD Code: I10 - Essential (primary) hypertension Procedures Cardiac catheterization 12/25 Mildly elevated left ventricular end diastolic pressure. Mildly impaired left ventricular function from an inferior infarct. Critical disease of the right coronary artery with stenting of the distal and posterolateral branch of the right coronary artery as well as stenting of the proximal right coronary artery. Mild disease of the mid left anterior descending that can be managed medically. Brief History - From Admission This is a 52-year-old male with a PMH of HTN and Hyperlipidemia who was brought to the ER by EMS for complaints of chest pain. Had episode of substernal chest pain last night which resolved spontaneously. Today, pt w/ recurrent chest pain. Pain is pressure-like, substernal, intermittent radiation to shoulder blades, severe, 8/10. Given NTG by EMS w/ minimal improvement. Pt lives in [place], flew into town recently for business, notes c/o SOB after walking up stairs yesterday, not typical for him. Denies fever, chills or cough. On arrival, BP 133/86, HR 60, O2 sat 92% on RA, Afebrile. CBC unremarkable. Chemistry essentially unremarkable except for GFR 75. Troponin 0.23. INR 0.9. CXR with no acute findings. Currently on Heparin gtt. CBC/BMP: 12/27/17 0355 12/27/17 0335 Significant Findings Laboratory Tests Test 12/25/17 23:50 12/26/17 06:00 12/26/17 09:00 12/27/17 03:35 Prothrombin Time 9.5 SEC (9.8-11.6) Activated Partial Thromboplast Time 23.7 SEC (24.3-30.1) 34.1 SEC (24.3-30.1) Chloride Level 109 MEQ/L (98-107) 111 MEQ/L (98-107) Estimat Glomerular Filtration Rate 75 ML/MIN (>89) Creatine Kinase MB 4.5 NG/ML (0.5-3.6) 25.3 NG/ML (0.5-3.6) 73.7 NG/ML (0.5-3.6) Troponin I 0.23 NG/ML (0.02-0.05) 0.99 NG/ML (0.02-0.05) LDL Cholesterol 105 MG/DL (0-99) Total Protein 5.8 GM/DL (6.4-8.2) Albumin 3.0 GM/DL (3.4-5.0) Calcium Level 8.3 MG/DL (8.5-10.1) Alkaline Phosphatase 35 U/L (45-117) Aspartate Amino Transf (AST/SGOT) 100 U/L (15-37) Total Creatine Kinase 611 U/L (39-308) Creatine Kinase MB % 12.1 % (0.0-4.0) Test 12/27/17 03:55 PE at Discharge GENERAL: Very pleasant middle-aged white male in no acute distress. CARDIOVASCULAR: Regular rate and rhythm. No obvious murmurs to auscultation. No chest tenderness to palpation. RESPIRATORY: No obvious rhonchi or wheezing. Clear to auscultation. Breath sounds equal bilaterally. GASTROINTESTINAL: Abdomen soft, non-tender, nondistended. BS normal. MUSCULOSKELETAL: Extremities without clubbing, cyanosis, or edema. No obvious deformities. NEUROLOGICAL: Awake, alert and oriented x4. No focal neurologic deficits. Moving both upper and lower extremities spontaneously. Hospital Course 52 YOWM with HTN and HLD admitted on 12/26 with chest pain found to have NSTEMI with mildly elevated troponins. 1. NSTEMI - Troponons 0.23 and 0.99 - EKG sinus john - Placed on heparin gtt on admission - Cardiology consulted and pt underwent cath on 12/26 showing: Mildly elevated left ventricular end diastolic pressure Mildly impaired left ventricular function from an inferior infarct Critical disease of the right coronary artery with stenting of the distal and posterolateral branch of the right coronary artery as well as stenting of the proximal right coronary artery Mild disease of the mid left anterior descending that can be managed medically - Cleared by cardiology this AM - On ASA and Brilinta, scripts provided - Continue statin and BB (statin dose increased) 2. HTN - On MM 3. HLD - On statin Discharged in stable condition on 12/27 since he was cleared by cardiology but unfortunately prior to attending had seen him. Pt Condition on Discharge: Stable Discharge Disposition: Discharge Home Discharge Time: <= 30 minutes Discharge Instructions DIET: Follow Instructions for: Heart Healthy Diet Follow up Referrals: Cardiology - 2-3 Days PCP Follow-up - 2-3 Days New Medications: Nitroglycerin SL (Nitroglycerin SL) 0.4 Mg Subl 0.4 MG SL DIRECTED PRN for CHEST PAIN, #100 TAB.SL 0 Refills ONE TABLET UNDER THE TONGUE NEEDED FOR CHEST PAIN, MAY REPEAT EVERY FIVE MINUTES FOR A TOTAL OF 3 DOSES OR CALL 911 IF NO RELIEF Atorvastatin (Atorvastatin) 80 Mg Tab 80 MG PO DAILY for Cholesterol Management, #30 TAB Metoprolol Tartrate (Metoprolol Tartrate) 25 Mg Tab 12.5 MG PO Q12HR for Blood Pressure Management, #60 TAB Ticagrelor (Brilinta) 90 Mg Tab 90 MG PO BID for Blood Clot Prevention, #120 TAB Continued Medications: Aspirin (Aspirin Low Dose) 81 Mg Chew 81 MG CHEW DAILY, TAB 0 Refills Losartan (Losartan) 100 Mg Tab 100 MG PO DAILY for Blood Pressure Management, #30 TAB 0 Refills Discontinued Medications: Pravastatin (Pravachol) 80 Mg Tab 80 MG PO DAILY for Cholesterol Management, #30 TAB 0 Refills Isidra Buchanan MD Dec 28, 2017 09:08
== END 2017-12-28 08:05 | disposition home or self-care (01) | DRG 247 ==
LOC: NEPC 23:32 → NEDH 12-26 01:49 → NEDA 12-26 01:49 → NEDH 12-26 08:26 → HCVI 12-26 12:30
PROVIDERS: ADMIT Family Medicine; ATTEND Family Medicine
PROC: 027035Z Dilation of Coronary Artery, One Artery with Two Drug-eluting Intraluminal Devices, Percutaneous Approach (ICD-10-PCS; principal; 2017-12-26)
PROC: 4A023N7 Measurement of Cardiac Sampling and Pressure, Left Heart, Percutaneous Approach (ICD-10-PCS; 2017-12-26)
PROC: B2111ZZ Fluoroscopy of Multiple Coronary Arteries using Low Osmolar Contrast (ICD-10-PCS; 2017-12-26)
PROC: B2151ZZ Fluoroscopy of Left Heart using Low Osmolar Contrast (ICD-10-PCS; 2017-12-26)
DX: I21.4 Non-ST elevation (NSTEMI) myocardial infarction (principal); I10 Essential (primary) hypertension; E78.5 Hyperlipidemia, unspecified; R09.02 Hypoxemia; F17.290 Nicotine dependence, other tobacco product, uncomplicated; I25.10 Atherosclerotic heart disease of native coronary artery without angina pectoris; R00.1 Bradycardia, unspecified; Z82.49 Family history of ischemic heart disease and other diseases of the circulatory system
CPT/HCPCS: 71045; 71275; 80048; 80053; 80061; 82550; 82552; 84484; 85025; 85610; 85730; 92928; 93005; 93458; 99152; 99285; C1725; C1760; C1769; C1874; C1887; C1893; G0269; J0583; J1644; J2250; J2270; J2405; J3010; J7030; Q9967